=== PATIENT | female | born 1960 | race Caucasian/White ===

== ENCOUNTER → 2018-08-20 | Outpatient (CLI) | payer BC ==
[~2018-08-20] MED LIST: ASPIR 8181 MG PO; CALCIUM500 MG PO; CYANOCOBAL1000 MCG/M IM; DIOVAN80 MG PO; LEVOTHYROXINE75 MCG PO; PREMARIN0.3 MG PO; RANEXA500 MG PO
--- NOTE | 2018-08-20 11:10 | Diagnostic Imaging Report ---
Exam: Brain MRI without IV contrast History: Memory loss, mild cognitive impairment Comparison studies: None. Technique: 3-D T1 with axial, coronal and sagittal reformats, axial and sagittal T2 FS, axial DWI, axial T2 FLAIR and axial T2*GRE. Intravenous contrast: None. Findings: Structural lesions: No intra-or extra-axial masses. No hematomas. Atrophy: General: Symmetric and age appropriate. Focal: No disproportionate lobar, hippocampal, mesencephalic, pontine, or cerebellar atrophy. Isaacs matter: Cortex: No signal abnormalities. No encephalomalacia. Basal ganglia: No atrophy or signal abnormalities. Thalami: No signal abnormalities. White matter signal intensity: A few scattered T2 FLAIR hyperintense foci in the supratentorial white matter and in the adriana are nonspecific but most compatible with chronic microvascular ischemic changes. No mass, hemorrhage or acute ischemia. Micro hemorrhages: None. Extra-axial spaces: No mass, no fluid collection. Ventricles: Normal in size and configuration. No hydrocephalus. Other: Skull: No bone marrow abnormalities. Vessels: Expected flow voids present in the major arteries and dural sinuses.. Sella: Normal in size. No intra-or suprasellar abnormalities. 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 Paranasal sinuses: Moderate nonspecific inflammatory mucosal thickening in the right maxillary sinus. Mild inflammatory mucosal thickening in the left maxillary sinus, left frontal sinus and bilateral anterior ethmoids. Mastoids: Minimal T2 hyperintense reactive changes at the right mastoid tip. IMPRESSION: 1. Mild chronic microvascular ischemic changes. 2. Normal brain volume. No disproportionate lobar or hippocampal atrophy. 3. Incidental inflammatory mucosal thickening in the paranasal sinuses. Signed by: Dr. Shiva Kelley M.D. on 08/20/2018 11:06 AM
== END ==
LOC: MRI 09:07
PROVIDERS: ATTEND Radiology Neuroradiology
DX: G31.84 Mild cognitive impairment of uncertain or unknown etiology (principal); R90.89 Other abnormal findings on diagnostic imaging of central nervous system
CPT/HCPCS: 70551